=== PATIENT | female | born 1950 | race Caucasian/White ===

== ENCOUNTER 2020-09-16 11:18 | Outpatient (REF) | payer MEDICARE, SELFPAY ==
[2020-09-16 11:56] LABS: MANUAL DIFF FLAG NO
[2020-09-16 12:07] LABS: Basophils Percent Auto 0.8 % (0-2); Eosinophils Absolute Auto 0.2 X10*3/uL (0.0-0.4); Eosinophils Percent Auto 3.9 % (0-4); Hematocrit 42.1 % (37-47); Imm Gran Abs Auto 0.01 X10*3/uL (0.00-0.03); Imm Gran Pct Auto 0.2 % (0.0-0.4); Lymphocytes Absolute Auto 1.3 X10*3/uL (1.2-4.9); Lymphocytes Percent Auto 24.4 % (20-40); Mean Corpuscular HGB Conc 33.3 g/dl (31.0-35.0); Mean Corpuscular Hemoglobin 31.7 pg (27.0-33.0); Mean Corpuscular Volume 95.2 fL (80-98); Mean Platelet Volume 9.9 fL (9.4-12.3); Monocytes Absolute Auto 0.5 X10*3/uL (0.1-1.2); Monocytes Percent Auto 9.2 % (2-11); Neutrophils Absolute Auto 3.2 X10*3/uL (2.0-8.3); Neutrophils Percent Auto 61.5 % (45-73); Platelet Count 220 X10*3/uL (160-400); Red Blood Count 4.42 X10*6/uL (4.20-5.50); Red Cell Distribution Width 13.1 % (11.0-16.0); White Blood Count 5.1 X10*3/uL (4.8-10.8)
[2020-09-16 12:34] LABS: Alanine Aminotransferase 15 U/L (0-31); Albumin Level 4.2 g/dL (3.5-5.0); Alkaline Phosphatase 82 U/L (39-117); Anion Gap 13 (12-20); Aspartate Amino Transferase 20 U/L (5-31); Bilirubin Total 0.9 mg/dL (0.0-1.0); Blood Urea Nitrogen 21 mg/dL (9-16); Calcium 9.2 mg/dL (8.4-10.2); Carbon Dioxide 29 mmol/L (22-29); Chloride 106 mmol/L (96-108); Cholesterol 155 mg/dL; Estimated Glomerular Filt Rate > 60; Glucose Fasting 101 mg/dL (60-99); HDL Cholesterol 57 mg/dL; LDL Cholesterol Calculated 87 mg/dl; Potassium 4.8 mmol/l (3.3-5.1); Sodium 143 mmol/L (135-145); Total Protein 6.6 g/dL (6.5-8.0); Triglycerides 58 mg/dL
== END 2020-09-16 11:19 | disposition home or self-care (01) ==
LOC: HO.LAB 11:18
PROVIDERS: PCP Physician Assistant; Visit Provider Physician Assistant
DX: I48.0 Paroxysmal atrial fibrillation (principal); I10 Essential (primary) hypertension
CPT/HCPCS: 36415; 80053; 80061; 85025

== ENCOUNTER 2022-08-02 13:09 | Outpatient (REF) | payer MEDICARE, SELFPAY ==
--- NOTE | ~2022-08-02 | XR_ITS ---
EXAMINATION: XR HIP, RIGHT CLINICAL INFORMATION: Pain in the right hip. COMPARISON: None TECHNIQUE: Two views of the right hip. FINDINGS: There are marginal osteophytes and nonuniform joint space narrowing most prominent medially. Findings indicative of moderate osteoarthritis. Surrounding bone and soft tissues are unremarkable. XR/XR hip RT min 2V IMPRESSION: Moderate osteoarthritis of the right hip.
== END 2022-08-02 13:10 | disposition home or self-care (01) ==
LOC: HO.HMGCX 13:09
PROVIDERS: PCP Physician Assistant; Visit Provider Physician Assistant
DX: M25.551 Pain in right hip (principal)
CPT/HCPCS: 73502

== ENCOUNTER 2023-04-26 10:49 | Outpatient (REF) | payer MEDICARE, SELFPAY ==
--- NOTE | ~2023-04-26 | XR_ITS ---
EXAMINATION: XR ABDOMEN COMPLETE CLINICAL INDICATION: Constipation COMPARISON: None available. TECHNIQUE: 2 views of the abdomen. FINDINGS: There is a large stool burden suggestive of constipation. There are no dilated loops of bowel to suggest obstruction. No calcifications. Degenerative changes of the spine and hip joints. Curvature of the lower lumbar spine to the left. XR/XR abdomen min 2V IMPRESSION: Severe constipation. No evidence of obstruction.
== END 2023-04-26 10:50 | disposition home or self-care (01) ==
LOC: HO.LAB 10:49
PROVIDERS: PCP Physician Assistant; Visit Provider Physician Assistant
DX: K59.01 Slow transit constipation (principal)
CPT/HCPCS: 74019

== ENCOUNTER 2023-11-22 15:41 | Outpatient (AMB) | payer MEDICARE, SELFPAY ==
[2023-11-22 15:44] VITALS: BP 122/80; PULSE 64; BMI 34.7
--- NOTE | 2023-11-22 15:44 | MHC.PC.OV ---
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 Accompanied by: Self / Same As Patient Allergies nortriptyline [Pamelor] Allergy (Unknown, Verified 11/22/23 16:04) Unknown penicillin V Allergy (Unknown, Verified 11/22/23 16:04) Unknown penicillin Allergy (Unknown, Uncoded 11/22/23 15:56) Unknown Medication List - Last Reconciled 11/22/23 by Kaiden Galdamez PA-C acetaminophen ER (Tylenol Arthritis Pain) 650 mg PO Q12H 30 days amlodipine 5 mg PO DAILY 90 days apixaban (Eliquis) 5 mg PO BID 90 days atorvastatin 20 mg PO DAILY irbesartan 300 mg PO DAILY multivitamin 1 tab PO DAILY sertraline 200 mg (2 x 100 mg) PO DAILY 90 days trazodone 200 mg (2 x 100 mg) PO BEDTIME Tobacco use date assessed: 11/22/23 Fall risk assessment: No Falls in past year Last assessed Fall Risk: 11/22/23 Dental Screening Dental Screen Date: 11/22/23 Did you have a dental visit in the last 12 months?: Yes Did you have a dental problem in the last 6 months where you did not have access to dental care?: No Was dental information given to patient?: Patient has dentist HPI Sinus Issue's HPI Details Patient is a 73-year-old female here today for medication follow up. Patient has a past medical history significant for hypertension, paroxysmal AFib, obesity, hyperlipidemia, MDD She was to move to [place] to live with her daughter though plans have changed and now staying with the practice here in [place]. Concerns--> she reports in August of 2023 having a herpes zoster infection over the right-sided face. 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 She has made full recover and doing fine now. .. AFib: Patient continues on Eliquis 5 mg b.i.d. without any overt signs of bleeding .. Major depressive disorder: Continues remain stable on current dose of SSRI therapy and nightly use of trazodone. [facility] Surgical History History of tonsillectomy History of ankle surgery History of tubal ligation Family History Father Hypertension CVD (cardiovascular disease) Dementia Cancer Mother Hypertension CVD (cardiovascular disease) Myocardial infarction Son Brain tumor Other Mental health disorder Social History Housing: House Alcohol intake: never Patient Tobacco Use Status: Never used Tobacco e-Cigarette/Vaping Use: Never Used Second Hand Smoke Exposure: No service: No Current occupational status: retired Cognitive needs: No Hearing needs: No Vision needs: Yes (reading glasses) Questionnaire PHQ-9 Over the last 2 weeks, how often have you been bothered by any of the following problems? 1. Little interest or pleasure in doing things: not at all 2. Feeling down, depressed, or hopeless: not at all 3. Trouble falling or staying asleep, or sleeping too much: not at all 4. Feeling tired or having little energy: not at all 5. Poor appetite or overeating: not at all 6. Feeling bad about yourself - or that you are a failure or have let yourself or your family down: not at all 7. Trouble concentrating on things, such as reading the newspaper or watching television: not at all 8. Moving or speaking so slowly that other people could have noticed. Or the opposite - being so fidgety or restless that you have been moving around a lot more than usual: not at all 9. Thoughts that you would be better off or of hurting yourself in some way: not at all Total score: 0 Depression Screening Interpretation: Negative Depression Screening Done: Yes 17617 - PHQ-9 Billing: Yes Source: Developed by Drs. Darci Waldrop, Rohini Abad, Betito Ness and colleagues, with an educational say from [employer]. Thrive Questionnaire Date Thrive assessed: 11/22/23 I am a: Patient What is your living situation today?: I have a steady place to live Within the past 12 months, did the food you bought not last and you didn't have the money to get more?: Never true Within the past 12 months, did you worry whether your food would run out before you got money to buy more?: Never true Do you have trouble paying for medicines?: No Do you have trouble getting transportation to medical appointments?: No Do you have trouble paying your heating and electricity bill?: No Do you have trouble taking care of your child, family member or friend?: No Do you have trouble with day-to-day activities such as bathing, preparing meals, shopping, managing finances, etc.?: No Are you currently unemployed and looking for a job?: No Are you interested in more education?: No Please select the resources that you would like help with: None Currently or been in a relationship where the following occur: no concerns reported AUDIT C Alcohol Use Questionnaire (AUDIT-C) 1. How often do you have a drink containing alcohol?: Never 3. How often do you have six or more drinks on one occasion?: Never Total Score: 0 EDWARD-7 AMB Questionnaire EDWARD-7 Date EDWARD - 7 assessed: 11/22/23 Feeling nervous, anxious, or on edge: 0 = Not at all Not being able to stop or control worryin = Not at all Worrying too much about different things: 0 = Not at all Trouble relaxin = Not at all Being so restless that it is hard to sit still: 0 = Not at all Becoming easily annoyed or irritable: 0 = Not at all Feeling afraid as if something awful might happen: 0 = Not at all Total EDWARD-7 score (0-4 normal; 5-9 mild; 10-14 moderate; 15-21 severe): 0 Source: Developed by Drs. Darci Waldrop, Rohini Abad, Betito Ness and colleagues, with an educational say from [employer]. EDWARD-7 Assessment Billing EDWARD-7 Assessment Tool: EDWARD-7 Assessment 29590 Review of Systems Const Denies headache(s) Eyes Denies loss of vision ENT Denies vertigo, Denies dizziness, Denies headache(s) and Denies sore throat Card Denies chest pain, Denies leg edema and Denies lightheadedness Resp Denies cough, Denies hemoptysis and Denies wheezing GI Denies abdominal pain, Denies melena, Denies constipation, Denies diarrhea and Denies vomiting Denies urinary frequency, Denies dysuria and Denies urinary urgency Musc Denies arthralgias, Denies joint swelling, Denies numbness and Denies tingling Neuro Denies Abnormal speech present, Denies behavioral changes, Denies vertigo, Denies dizziness, Denies headache(s), Denies loss of vision, Denies memory loss, Denies numbness and Denies tingling Psych Denies anxiety, Denies behavioral changes, Denies depression, Denies memory loss and Denies panic attacks Long/Lymph Denies easy bleeding and Denies easy bruising Aller/Immun Denies wheezing Physical exam (Primary Care) Vital Signs: Last Vital Signs Pulse 64 11/22/23 15:44 BP 122/80 11/22/23 15:44 BMI result Body Mass Index 34.7 BMI Assessment/Plan discussion: High Tobacco/Smoking Status: Tobacco use Status Tobacco use date assessed 11/22/23 11/22/23 15:55 Patient Tobacco Use Status Never used Tobacco 11/22/23 15:45 e-Cigarette/Vaping Use Never Used 11/22/23 15:45 PHQ-9: PHQ-9 Score PHQ-9: Total score 0 11/22/23 16:10 Depression Screening Interpretation: Negative Thrive Assessment: Date of Thrive Assessment Date Thrive assessed 11/22/23 11/22/23 15:57 Currently or been in a relationship where the following occur: no concerns reported Const Other: Obese General: healthy appearing, no acute distress, alert and awake Nutritional Appearance: well nourished Orientation/consciousness: oriented to person, oriented to place and oriented to time HENMT Ears: TM's normal bilaterally General nose exam: Normal nasal mucous membranes and turbinates present Eyes Conjunctivae: conjunctivae normal Sclerae: sclerae normal Pupils: Equal, round and reactive pupils present Neck Neck: Yes no lymphadenopathy and Yes no JVD Thyroid: Thyroid normal Carotids: no bruits Resp Effort & Inspection: normal respiratory effort and not tachypneic Auscultation: no crackles, no rales, no rhonchi and no wheezes Cardio Rate: regular rate Rhythm: regular rhythm Heart sounds: no murmurs and normal S1 and S2 GI Palpation (GI): Soft to palpation, nontender, no hepatomegaly and no splenomegaly Auscultation: normal bowel sounds Skin General skin exam: no rashes or lesions noted and dry skin Neuro General: oriented to person, oriented to place and oriented to time Cranial nerves: Yes Equal, round and reactive pupils present Speech: No Abnormal speech present Gait exam (Neuro): Normal gait present Motor exam (neuro): no tremor noted Extrem Right upper extremity: full ROM Left upper extremity: full ROM Right lower extremity: full ROM; no edema Left lower extremity: full ROM; no edema Psych Mental Status: mental status grossly normal Speech and movement: Normal speech and movement present Affect: normal affect Attitude: cooperative Thought process: Normal thought process present Assessment and Plan Assessment & Plan (1) HTN (hypertension): Code(s): I10 - Essential (primary) hypertension Qualifiers: Hypertension type: essential hypertension Qualified Code(s): I10 - Essential (primary) hypertension Plan: Patient's blood pressure acceptable today in office. Will continue current antihypertensive medication with goal blood pressure to be below 140/90 (2) Paroxysmal A-fib: Code(s): I48.0 - Paroxysmal atrial fibrillation Plan: Followed by cardiology in [place] ([place]) reports recently gotten labs in evaluation and reports normal. Continues on anticoagulation. She denies any overt signs of bleeding (3) HLD (hyperlipidemia): Code(s): E78.5 - Hyperlipidemia, unspecified Qualifiers: Hyperlipidemia type: mixed hyperlipidemia Qualified Code(s): E78.2 - Mixed hyperlipidemia Plan: Patient continues on statin therapy without side effect. Advised to get fasting lipids done to evaluate for total cholesterol and LDL. Goal LDL to be below 130 (4) MDD (major depressive disorder), recurrent episode, moderate: Code(s): F33.1 - Major depressive disorder, recurrent, moderate Plan: Patient's PHQ-9 score 0, continues on SSRI therapy and nightly trazodone which has been very effective for her. Otherwise denies any SI or HI. (5) Obese: Code(s): E66.9 - Obesity, unspecified Qualifiers: Obesity type: due to excess calories Obesity classification: adult class 1 (BMI 30 - 34.9) Serious obesity comorbidity presence: without serious comorbidity Body mass index: BMI 34.0-34.9 Qualified Code(s): E66.09 - Other obesity due to excess calories; Z68.34 - Body mass index [BMI] 34.0-34.9, adult Plan: Patient does understand her BMI is over 30 will work on being more physically active and adapting to better eating habits to reduce her weight. Orders: Orders Lipid Panel 11/22/23 E78.2 - Mixed hyperlipidemia Microalbumin, Random (w Creat) 11/22/23 I10 - Essential (primary) hypertension Comprehensive [place]. Panel Fast 11/22/23 I10 - Essential (primary) hypertension Complete Blood Count no Diff 11/22/23 I10 - Essential (primary) hypertension Medications: Refilled atorvastatin 20 mg PO DAILY 90 tabs 2RF E78.5 - Hyperlipidemia, unspecified atorvastatin 20 mg PO DAILY 90 tabs 2RF E78.5 - Hyperlipidemia, unspecified Coding Level of Care Code Est Pt Level 4 (33594) Diagnoses Essential hypertension I10 Hypertension type: essential hypertension Paroxysmal A-fib I48.0 Mixed hyperlipidemia E78.2 Hyperlipidemia type: mixed hyperlipidemia MDD (major depressive disorder), recurrent episode, moderate F33.1 Class 1 obesity due to excess calories without serious comorbidity with body mass index (BMI) of 34.0 to 34.9 in adult E66.09; Z68.34 Obesity type: due to excess calories Obesity classification: adult class 1 (BMI 30 - 34.9) Serious obesity comorbidity presence: without serious comorbidity Body mass index: BMI 34.0-34.9 Additional Codes EDWARD-7 Assessment Billing - EDWARD-7 Assessment Tool: EDWARD-7 Assessment 50745 ([id number])
== END 2023-11-22 16:19 | disposition home or self-care (01) ==
PROVIDERS: PCP Physician Assistant; Visit Provider Physician Assistant
DX: I48.0 Paroxysmal atrial fibrillation (principal); F33.1 Major depressive disorder, recurrent, moderate; E66.09 Other obesity due to excess calories; Z68.34 Body mass index [BMI] 34.0-34.9, adult; I10 Essential (primary) hypertension; E78.2 Mixed hyperlipidemia
CPT/HCPCS: 99214

== ENCOUNTER 2024-03-26 14:18 | Outpatient (AMB) | payer MEDICARE, SELFPAY ==
--- NOTE | 2024-03-26 14:22 | A.OFFPC_ITS ---
Vital Signs 03/26/24 14:39 Height 5 ft 2.4 in Weight 194 lb BMI 35.0 BP 138/76 Blood Pressure Location Lt brachial Position Sitting Pulse 64 Pulse Source Pulse Oximeter Pulse Oximetry (%) 96 Oxygen Delivery Method Room Air Intake Visit Reasons: runny nose, blury eyes, rt knee swell and sore Intake Note: Pt is here for blurred vision, which worsens especially at night, ongoing swelling and soreness in the right knee, and a chronic runny nose. [employer] Supervisor Required: No Accompanied by: Self / Same As Patient Allergies nortriptyline [Pamelor] Allergy (Unknown, Verified 03/26/24 14:57) Unknown penicillin V Allergy (Unknown, Verified 03/26/24 14:57) Unknown penicillin Allergy (Unknown, Uncoded 03/26/24 14:57) Unknown Medication List - Last Reconciled 03/26/24 by Kaiden Galdamez PA-C acetaminophen ER (Tylenol Arthritis Pain) 650 mg PO Q12H 30 days amlodipine 5 mg PO DAILY 90 days apixaban (Eliquis) 5 mg PO BID 90 days atorvastatin 20 mg PO DAILY doxycycline monohydrate 100 mg PO BID 5 days irbesartan 300 mg PO DAILY multivitamin 1 tab PO DAILY sertraline 200 mg (2 x 100 mg) PO DAILY 90 days trazodone 200 mg (2 x 100 mg) PO BEDTIME Tobacco use date assessed: 11/22/23 Fall risk assessment: No Falls in past year Last assessed Fall Risk: 03/26/24 Dental Screening Dental Screen Date: 11/22/23 HPI runny nose, blury eyes, rt knee swell and sore HPI Details Patient is a 73-year-old female here today for problem visit. Patient reports having runny nose and watery eyes over last several weeks. Also having bilateral knee pain , right worse than left. She denies any recent acute injury. She also reports having chronic rhinitis to which she has not used any [id number] nasal sprays or allergy medication. [facility] [place] Surgical History History of tonsillectomy History of ankle surgery History of tubal ligation Family History Father Hypertension CVD (cardiovascular disease) Dementia Cancer Mother Hypertension CVD (cardiovascular disease) Myocardial infarction Son Brain tumor Other Mental health disorder Social History Housing: House Alcohol intake: never Patient Tobacco Use Status: Never used Tobacco e-Cigarette/Vaping Use: Never Used Second Hand Smoke Exposure: No service: No Current occupational status: retired Cognitive needs: No Hearing needs: No Vision needs: Yes (reading glasses) Questionnaire Thrive Questionnaire Date Thrive assessed: 11/22/23 EDWARD-7 AMB Questionnaire EDWARD-7 Date EDWARD - 7 assessed: 11/22/23 Source: Developed by Drs. Darci Waldrop, Rohini Abad, Betito Ness and colleagues, with an educational say from [employer]. Review of Systems Const Denies headache(s) Eyes Denies loss of vision ENT Denies vertigo, Denies dizziness, Denies headache(s) and Denies sore throat Card Denies chest pain, Denies leg edema and Denies lightheadedness Resp Denies cough, Denies hemoptysis and Denies wheezing GI Denies abdominal pain, Denies melena, Denies constipation, Denies diarrhea and Denies vomiting Denies urinary frequency, Denies dysuria and Denies urinary urgency Musc Denies arthralgias, Denies joint swelling, Denies numbness and Denies tingling Neuro Denies Abnormal speech present, Denies behavioral changes, Denies vertigo, Denies dizziness, Denies headache(s), Denies loss of vision, Denies memory loss, Denies numbness and Denies tingling Psych Denies anxiety, Denies behavioral changes, Denies depression, Denies memory loss and Denies panic attacks Long/Lymph Denies easy bleeding and Denies easy bruising Aller/Immun Denies wheezing Physical exam (Primary Care) Vital Signs: Last Vital Signs Pulse 64 03/26/24 14:39 BP 138/76 03/26/24 14:39 Pulse Ox 96 03/26/24 14:39 Oxygen Delivery Method Room Air 03/26/24 14:39 BMI result Body Mass Index 35.0 Tobacco/Smoking Status: Tobacco use Status Tobacco use date assessed 11/22/23 03/26/24 14:22 Patient Tobacco Use Status Never used Tobacco 03/26/24 14:22 e-Cigarette/Vaping Use Never Used 03/26/24 14:22 Thrive Assessment: Date of Thrive Assessment Date Thrive assessed 11/22/23 03/26/24 14:22 Const General: healthy appearing, no acute distress, alert and awake Nutritional Appearance: well nourished Orientation/consciousness: oriented to person, oriented to place and oriented to time HENMT Ears: TM's normal bilaterally General nose exam: Normal nasal mucous membranes and turbinates present Eyes Conjunctivae: conjunctivae normal Sclerae: sclerae normal Pupils: Equal, round and reactive pupils present Neck Neck: Yes no lymphadenopathy and Yes no JVD Thyroid: Thyroid normal Carotids: no bruits Resp Effort & Inspection: normal respiratory effort and not tachypneic Auscultation: no crackles, no rales, no rhonchi and no wheezes Cardio Rate: regular rate Rhythm: regular rhythm Heart sounds: no murmurs and normal S1 and S2 GI Palpation (GI): Soft to palpation, nontender, no hepatomegaly and no splenomegaly Auscultation: normal bowel sounds Skin General skin exam: no rashes or lesions noted and dry skin Neuro General: oriented to person, oriented to place and oriented to time Cranial nerves: Yes Equal, round and reactive pupils present Speech: No Abnormal speech present Gait exam (Neuro): Normal gait present Motor exam (neuro): no tremor noted Extrem Right upper extremity: full ROM Left upper extremity: full ROM Right lower extremity: full ROM; no edema Left lower extremity: full ROM; no edema Psych Mental Status: mental status grossly normal Speech and movement: Normal speech and movement present Affect: normal affect Attitude: cooperative Thought process: Normal thought process present Assessment and Plan Assessment & Plan (1) Left knee pain: Code(s): M25.562 - Pain in left knee Qualifiers: Chronicity: chronic Qualified Code(s): M25.562 - Pain in left knee; G89.29 - Other chronic pain Plan: Will try for x-rays of both knees as she does have pain in both knees. Left knee worse. She does have hardware placement in her right ankle years ago from traumatic injury. She does seem to have an antalgic gait which is likely the reason for left knee pain from compensation. (2) Right knee pain: Code(s): M25.561 - Pain in right knee Qualifiers: Chronicity: unspecified Qualified Code(s): M25.561 - Pain in right knee (3) Rhinitis: Code(s): J31.0 - Chronic rhinitis Qualifiers: Rhinitis type: other Qualified Code(s): J31.0 - Chronic rhinitis Plan: Patient continues with rhinitis, likely related to allergies. Will supply patient with a nasal spray to use Orders: Orders XR knee RT 3V 03/27/24 G89.29 - Other chronic pain, M25.562 - Pain in left knee XR knee LT 3V 03/27/24 G89.29 - Other chronic pain, M25.562 - Pain in left knee Medications: New fluticasone propionate 50 mcg/actuation (Flonase Allergy Relief) administer into each nostril 1 spray intranasal BID 16 grams 2RF 30 days J31.0 - Chronic rhinitis Discontinued doxycycline monohydrate Discontinued Reason: Doctor's Order 100 mg PO BID 5 days 10 caps 0RF L03.90 - Cellulitis, unspecified Coding Level of Care Code Est Pt Level 4 (20108) Diagnoses Chronic pain of left knee M25.562; G89.29 Chronicity: chronic Right knee pain, unspecified chronicity M25.561 Chronicity: unspecified Other rhinitis J31.0 Rhinitis type: other
[2024-03-26 14:39] VITALS: BP 138/76; PULSE 64; O2SAT 96; BMI 35.0
== END 2024-03-26 15:24 | disposition home or self-care (01) ==
PROVIDERS: PCP Physician Assistant; Visit Provider Physician Assistant
DX: M25.562 Pain in left knee (principal); M25.561 Pain in right knee; G89.29 Other chronic pain; J31.0 Chronic rhinitis
CPT/HCPCS: 99214

== ENCOUNTER 2024-03-27 11:11 | Outpatient (REF) | payer MEDICARE, SELFPAY ==
--- NOTE | ~2024-03-27 | XR_ITS ---
EXAMINATION: XR BILATERAL KNEES CLINICAL INFORMATION: Pain in each knee. COMPARISON: None available. FINDINGS: RIGHT KNEE: Bones are diffusely demineralized. Faint chondrocalcinosis in the medial and lateral compartments. [id number]-[id number] narrowing of the medial compartment. Tiny tricompartmental osteophytes. Small suprapatellar effusion. Mild lateral subluxation of the patella. LEFT KNEE: Bones are diffusely demineralized. Faint chondrocalcinosis in the medial and lateral compartments. [id number]-[id number] narrowing of the medial compartment. Tiny tricompartmental osteophytes. Small suprapatellar effusion. Mild lateral subluxation of the patella. XR/XR knee LT 3V IMPRESSION: [id number] degenerative changes in the bilateral knees.
--- NOTE | ~2024-03-27 | XR_ITS ---
EXAMINATION: XR BILATERAL KNEES CLINICAL INFORMATION: Pain in each knee. COMPARISON: None available. FINDINGS: RIGHT KNEE: Bones are diffusely demineralized. Faint chondrocalcinosis in the medial and lateral compartments. Gyyc-[id number] narrowing of the medial compartment. Tiny tricompartmental osteophytes. Small suprapatellar effusion. Mild lateral subluxation of the patella. LEFT KNEE: Bones are diffusely demineralized. Faint chondrocalcinosis in the medial and lateral compartments. Sbum-ie-yqgmfwyr narrowing of the medial compartment. Tiny tricompartmental osteophytes. Small suprapatellar effusion. Mild lateral subluxation of the patella. XR/XR knee RT 3V IMPRESSION: [id number] degenerative changes in the bilateral knees.
== END 2024-03-27 11:12 | disposition home or self-care (01) ==
LOC: HO.XRAY 11:11
PROVIDERS: PCP Physician Assistant; Visit Provider Physician Assistant
DX: M25.562 Pain in left knee (principal); G89.29 Other chronic pain; M25.561 Pain in right knee
CPT/HCPCS: 73562

== ENCOUNTER 2024-06-18 10:19 | Outpatient (REF) | payer MEDICARE, SELFPAY ==
[2024-06-18 10:53] LABS: Hemoglobin 13.5 g/dl (12.0-16.0); Mean Corpuscular HGB Conc 32.9 g/dl (31.0-35.0); Mean Corpuscular Hemoglobin 31.8 pg (27.0-33.0); Mean Corpuscular Volume 96.7 fL (80.0-98.0); Mean Platelet Volume 9.8 fL (9.4-12.3); Platelet Count 223 X10*3/uL (160-400); Red Blood Count 4.24 X10*6/uL (4.20-5.50); Red Cell Distribution Width 12.9 % (11.0-16.0); White Blood Count 5.8 X10*3/uL (4.8-10.8)
[2024-06-18 11:40] LABS: Alanine Aminotransferase 11 U/L (0-31); Albumin Level 4.1 g/dL (3.5-5.0); Alkaline Phosphatase 99 U/L (39-117); Anion Gap 10 (12-20); Aspartate Amino Transferase 17 U/L (5-31); Bilirubin Total 0.6 mg/dL (0.0-1.0); Blood Urea Nitrogen 18 mg/dL (9-16); Calcium 9.9 mg/dL (8.4-10.2); Carbon Dioxide 29 mmol/L (22-29); Chloride 107 mmol/L (96-108); Cholesterol 221 mg/dL (<200); Estimated Glomerular Filt Rate 59; Glucose Fasting 100 mg/dL (60-99); HDL Cholesterol 53 mg/dL (>40); LDL Cholesterol Calculated 146 mg/dL (<100); Potassium 4.3 mmol/L (3.3-5.1); Sodium 142 mmol/L (135-145); Total Protein 6.9 g/dL (6.5-8.0); Triglycerides 113 mg/dL (<150)
[2024-06-18 14:17] LABS: Creatinine Urine 126.47 mg/dL; Microalbum/Creatinine Ratio Ur 52.1 ug/mg cr (<30)
== END 2024-06-18 10:20 | disposition home or self-care (01) ==
LOC: HO.LAB 10:19
PROVIDERS: PCP Physician Assistant; Visit Provider Physician Assistant
DX: I10 Essential (primary) hypertension (principal); E78.2 Mixed hyperlipidemia
CPT/HCPCS: 36415; 80053; 80061; 82043; 82570; 85027

== ENCOUNTER 2024-08-26 13:48 | Outpatient (AMB) | payer MEDICARE, SELFPAY ==
--- NOTE | 2024-08-26 14:09 | A.OFFPC_ITS ---
Vital Signs 08/26/24 14:10 Height 5 ft 2.4 in Blood Pressure Location Lt brachial Position Sitting Pulse Source Pulse Oximeter Oxygen Delivery Method Room Air Intake Visit Reasons: afib hld Allergies nortriptyline [Pamelor] Allergy (Unknown, Verified 03/26/24 14:57) Unknown penicillin V Allergy (Unknown, Verified 03/26/24 14:57) Unknown penicillin Allergy (Unknown, Uncoded 03/26/24 14:57) Unknown Tobacco use date assessed: 11/22/23 Dental Screening Dental Screen Date: 11/22/23 [facility] Surgical History History of tonsillectomy History of ankle surgery History of tubal ligation Family History Father Hypertension CVD (cardiovascular disease) Dementia Cancer Mother Hypertension CVD (cardiovascular disease) Myocardial infarction Son Brain tumor Other Mental health disorder Social History Housing: House Alcohol intake: never Patient Tobacco Use Status: Never used Tobacco e-Cigarette/Vaping Use: Never Used Second Hand Smoke Exposure: No service: No Current occupational status: retired Cognitive needs: No Hearing needs: No Vision needs: Yes (reading glasses) Questionnaire PHQ-9 Over the last 2 weeks, how often have you been bothered by any of the following problems? 1. Little interest or pleasure in doing things: not at all 2. Feeling down, depressed, or hopeless: not at all 3. Trouble falling or staying asleep, or sleeping too much: not at all 4. Feeling tired or having little energy: not at all 5. Poor appetite or overeating: not at all 6. Feeling bad about yourself - or that you are a failure or have let yourself or your family down: not at all 7. Trouble concentrating on things, such as reading the newspaper or watching television: not at all 8. Moving or speaking so slowly that other people could have noticed. Or the opposite - being so fidgety or restless that you have been moving around a lot more than usual: not at all 9. Thoughts that you would be better off or of hurting yourself in some way: not at all Total score: 0 Depression Screening Interpretation: Negative Depression Screening Done: Yes 89671 - PHQ-9 Billing: Yes Source: Developed by Drs. Darci Waldrop, Rohini Abad, Betito Ness and colleagues, with an educational say from [employer]. Thrive Questionnaire Date Thrive assessed: 08/26/24 I am a: Patient What is your living situation today?: I have a steady place to live Within the past 12 months, did the food you bought not last and you didn't have the money to get more?: Never true Within the past 12 months, did you worry whether your food would run out before you got money to buy more?: Never true Do you have trouble paying for medicines?: No Do you have trouble getting transportation to medical appointments?: No Do you have trouble paying your heating and electricity bill?: No Do you have trouble taking care of your child, family member or friend?: No Do you have trouble with day-to-day activities such as bathing, preparing meals, shopping, managing finances, etc.?: No Are you currently unemployed and looking for a job?: I choose not to answer this question Are you interested in more education?: No Please select the resources that you would like help with: None Currently or been in a relationship where the following occur: No concerns reported THRIVE Score: 0 AUDIT C Alcohol Use Questionnaire (AUDIT-C) 1. How often do you have a drink containing alcohol?: Never 3. How often do you have six or more drinks on one occasion?: Never Total Score: 0 EDWARD-7 AMB Questionnaire EDWARD-7 Date EDWARD - 7 assessed: 08/26/24 Feeling nervous, anxious, or on edge: 0 = Not at all Not being able to stop or control worryin = Not at all Worrying too much about different things: 0 = Not at all Trouble relaxin = Not at all Being so restless that it is hard to sit still: 0 = Not at all Becoming easily annoyed or irritable: 0 = Not at all Feeling afraid as if something awful might happen: 0 = Not at all Total EDWARD-7 score (0-4 normal; 5-9 mild; 10-14 moderate; 15-21 severe): 0 Source: Developed by Rohini Trinidad Kurt Kroenke and colleagues, with an educational say from [employer]. EDWARD-7 Assessment Billing EDWARD-7 Assessment Tool: EDWARD-7 Assessment 68073 Physical exam (Primary Care) Tobacco/Smoking Status: Tobacco use Status Tobacco use date assessed 11/22/23 03/26/24 14:22 Patient Tobacco Use Status Never used Tobacco 03/26/24 14:22 e-Cigarette/Vaping Use Never Used 03/26/24 14:22 Depression Screening Interpretation: Negative Thrive Assessment: Date of Thrive Assessment Date Thrive assessed 11/22/23 03/26/24 14:22 Currently or been in a relationship where the following occur: No concerns reported Coding Additional Codes EDWARD-7 Assessment Billing - EDWARD-7 Assessment Tool: EDWARD-7 Assessment 03051 ([id number])
[2024-08-26 14:10] VITALS: BP 160/100; PULSE 60; O2SAT 97; BMI 34.7
--- NOTE | 2024-08-26 14:20 | A.OFFVIS_ITS ---
Intake Vital Signs 08/26/24 14:10 08/26/24 14:54 Height 5 ft 2.4 in Weight 192 lb 4 oz BMI 34.7 BP 160/100 H 160/100 H Blood Pressure Location Lt brachial Position Sitting Pulse 60 Pulse Source Pulse Oximeter Pulse Oximetry (%) 97 Oxygen Delivery Method Room Air Intake Visit Reasons: Wellness visit Network Consultant Required: No Accompanied by: Self / Same As Patient Allergies nortriptyline [Pamelor] Allergy (Unknown, Verified 08/26/24 14:36) Unknown penicillin V Allergy (Unknown, Verified 08/26/24 14:36) Unknown penicillin Allergy (Unknown, Uncoded 08/26/24 14:36) Unknown Medication List - Last Reconciled 08/26/24 by Kaiden Galdamez PA-C acetaminophen ER (Tylenol Arthritis Pain) 650 mg PO Q12H 30 days amlodipine 5 mg PO DAILY 90 days apixaban (Eliquis) 5 mg PO BID 90 days atorvastatin 20 mg PO DAILY fluticasone propionate 50 mcg/actuation (Flonase Allergy Relief) 1 spray intranasal BID 30 days irbesartan 300 mg PO DAILY multivitamin 1 tab PO DAILY sertraline 200 mg (2 x 100 mg) PO DAILY 90 days trazodone 200 mg (2 x 100 mg) PO BEDTIME HPI Wellness visit HPI Details Patient is a 74-year-old female here today for an annual wellness visit. --> of note noted higher blood pressure reading today in office. Patient reports she has been under some stress as of late due to social and family issues going on. She is diligent about taking her blood pressure readings and taking her medication. Today we discussed patient's end of life planning and [facility]. Also reviewed her comprehensive care plan that was scanned into patient's documents. Mammogram: Gets mammograms done at [facility] Bone density: Sees specialty transformer assembler and gets bone densities done at [facility] Colorectal cancer screening: She reports she is up-to-date with colonoscopy Vaccines: Up-to-date with tetanus, pneumonia, COVID, considering shingles vaccine HPI Comments History of Present Illness Details reviewed past medical history- yes reviewed surgical / hospitalization history- yes reviewed current medications- yes reviewed family history- yes home safety throw rugs? grab bars? raised toilet seat? working smoke detectors? activities of daily living difficulty bathing or showering? difficulty dressing? difficulty using the toilet? difficulty getting in and out of bed? difficulty walking? receives help from other person's with any of the above tasks? instrumental activities of daily living uses telephone - gets to place out of walking distance- go shopping for groceries- repairs own meals- does own minor home maintenance- does own laundry- does own housework- manages own money- currently takes medication- end of life planning discussed advanced directives- yes advanced directives on file? discussed wishes expressed in advanced directives. fall risk have you had any falls with injuries in the past year? have you had 2 or more falls in the past year? fall risk assessment: [facility] Surgical History History of tonsillectomy History of ankle surgery History of tubal ligation Family History Father Hypertension CVD (cardiovascular disease) Dementia Cancer Mother Hypertension CVD (cardiovascular disease) Myocardial infarction Son Brain tumor Other Mental health disorder Social History Housing: House Alcohol intake: never Patient Tobacco Use Status: Never used Tobacco e-Cigarette/Vaping Use: Never Used Second Hand Smoke Exposure: No service: No Current occupational status: retired Cognitive needs: No Hearing needs: No Vision needs: Yes (reading glasses) Questionnaire Medicare Wellness Checkup [age] What gender do you identify with?: female During the past 4 weeks, how much have you been bothered by emotional problems such as feeling anxious, depressed, irritable, sad or downhearted, and blue?: slightly During the past 4 weeks, has your physical & emotional health limited your social activities with family, friends, neighbors, or groups?: slightly During the past 4 weeks, how much bodily pain have you generally had?: mild pain During the past 4 weeks, was someone available to help you if you needed & wanted help?: yes, quite a bit During the past 4 weeks, what was the hardest physical activity you could do for at least 2 minutes?: very heavy Can you get to places out of walking distance without help? (For eg., can you travel alone on buses, taxis or drive your car?): Yes Can you go shopping for groceries or clothes without someone's help?: Yes Can you prepare your own meals?: Yes Can you do your housework without help?: Yes Because of any health problems, do you need the help of another person with your personal care needs such as eating, bathing, dressing or getting around the house?: No Can you handle your own money without help?: Yes During the past 4 weeks, how would you rate your health in general?: very good During the past 4 weeks how have things been going for you?: pretty well Are you having difficulties driving your car?: no Do you always fasten your seat belt when you are in a car?: yes, usually During past 4 weeks, have you been bothered by the following: never: Falling or dizzy when standing up, Sexual problems? and Problems using the telephone?, seldom: Trouble eating well? and Teeth or denture problems? and sometimes: Tiredness or fatigue? Have you fallen 2 or more times in the past year?: No Are you afraid of falling?: No Are you a smoker?: no During the past 4 weeks, how many drinks of wine, beer, or other alcoholic beverages did you have?: no alcohol at all Do you exercise for about 20 minutes 3 or more times a week?: yes, most of the time Have you been given information to help with the following?: no: Hazards in your house that might hurt you? How often do you have trouble taking medicines the way you have been told to take them?: I always take medicine as prescribed How confident are you that you can control & manage most of your health pr oblems?: very confident What is your race?: White Mini Mental State Exam (MMSE) Orientation What is the (year) (season) (date) (day) (month)?: year Where are we (state) (county) (town or city) (hospital) (floor)?: town or city Attention & Calculation (CHOOSE ONE) Ask pt to begin with 100 & count backward by 7. Stop after 5 repeats. If pt cannot ask them to spell the word WORLD backward.: 93 Spell WORLD backwards (DLROW): 5 letters Score Score: 8 Activity of Daily Living Bathing - sponge bath, tub bath or shower: receives no assistance (gets in/out by self, if usual bathing means Dressing - getting clothes from closets & drawers, including inner/outer garments & fasteners.: gets clothes & gets completely dressed without help Toileting - going to the 'toilet room' for urine/bowel elimination & cleaning self/arranging clothes: goes to toilet room, cleans self, arranges clothes without help Transfer: moves in & out of bed and chair without help (may use support object) Continence: controls urination/bowel movements completely by self Feeding: feeds self without help Total Score: 0 Information obtained from: patient Using telephone: independent Traveling: independent Shopping: independent Preparing meals: independent Housework: independent Taking medicine: independent Managing money: independent PHQ-9 Over the last 2 weeks, how often have you been bothered by any of the following problems? 1. Little interest or pleasure in doing things: not at all 2. Feeling down, depressed, or hopeless: not at all 3. Trouble falling or staying asleep, or sleeping too much: not at all 4. Feeling tired or having little energy: several days 5. Poor appetite or overeating: several days 6. Feeling bad about yourself - or that you are a failure or have let yourself or your family down: several days 7. Trouble concentrating on things, such as reading the newspaper or watching television: not at all 8. Moving or speaking so slowly that other people could have noticed. Or the opposite - being so fidgety or restless that you have been moving around a lot more than usual: not at all 9. Thoughts that you would be better off or of hurting yourself in some way: not at all Total score: 3 Depression Screening Interpretation: Positive Depression Screening Follow-up: Existing condition Depression Screening Done: Yes 79675 - PHQ-9 Billing: Yes Source: Developed by Drs. Darci Waldrop, Rohini Abad, Betito Ness and colleagues, with an educational say from [employer]. Physical Exam Vital Signs: Last Vital Signs Pulse 60 08/26/24 14:10 BP 160/100 H 08/26/24 14:54 Pulse Ox 97 08/26/24 14:10 Oxygen Delivery Method Room Air 08/26/24 14:10 BMI result Body Mass Index 34.7 HEENT Other: hearing screening whisper test- failed left side, pass on right side Eyes Other: vision screening- 20 20 OS OD OU Other: urinary incontinence? no Neuro Other: balance Romberg- normal tandem walk test- able walk-in turned test- able rise from sit to stand- within 2 seconds Assessment & Plan Assessment & Plan (1) Annual wellness visit: Code(s): Z00.00 - Encounter for general adult medical examination without abnormal findings Plan: As per HPI Orders: Orders Lipid Panel 08/26/24 E78.2 - Mixed hyperlipidemia Microalbumin, Random (w Creat) 08/26/24 I10 - Essential (primary) hypertension Comprehensive [place]. Panel Fast 08/26/24 I10 - Essential (primary) hypertension Complete Blood Count no Diff 08/26/24 I10 - Essential (primary) hypertension Quality Reporting (2019) Depression/Bipolar (159/160/161/177) PHQ-9: Total score: 3 Coding Level of Care Code Medicare Subsequent (G0439) Diagnoses Annual wellness visit Z00.00 CPT Codes Advance Care Planning - Time spent: 1-15 minutes, not on file ([id number]) Advance Care Planning Advance Care Planning discussion: Exists, not on file Date of discussion: 08/26/24 Forms completed: MOLST Time spent: 1-15 minutes, not on file Actual minutes spent: 4
[2024-08-26 14:54] VITALS: BP 160/100
== END 2024-08-26 15:06 | disposition home or self-care (01) ==
PROVIDERS: PCP Physician Assistant; Visit Provider Physician Assistant
DX: Z00.00 Encounter for general adult medical examination without abnormal findings (principal)

== ENCOUNTER → 2024-08-26 13:48 | Outpatient (BNVA) | payer MEDICARE, SELFPAY | PROVIDERS: PCP Physician Assistant; Visit Provider Physician Assistant ==

== ENCOUNTER 2025-06-22 10:01 | Outpatient (AMB) | payer MEDICARE, SELFPAY ==
--- NOTE | 2025-06-22 10:08 | MHC.PC.OV ---
Vital Signs 06/22/25 10:09 Height 5 ft 2.4 in Weight 190 lb 2 oz BMI 34.3 BP 120/70 Blood Pressure Location Lt brachial Position Sitting Pulse 60 Pulse Source Pulse Oximeter Temp 97.1 F Temp Source Temporal Artery Scan Pulse Oximetry (%) 97 Oxygen Delivery Method Room Air Intake Visit Reasons: Follow up HTN Intake Note: Patient is here to follow up on HTN. 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: Not Required per policy Accompanied by: Self / Same As Patient Allergies nortriptyline (Pamelor) Allergy (Unknown, Verified 06/22/25 10:20) Unknown penicillin V Allergy (Unknown, Verified 06/22/25 10:20) Unknown penicillin Allergy (Unknown, Uncoded 06/22/25 10:20) Unknown Medication List - Last Reconciled 06/22/25 by Kaiden Galdamez PA-C acetaminophen ER (Tylenol Arthritis Pain) 650 mg PO Q12H 30 days amlodipine 5 mg PO DAILY 90 days apixaban (Eliquis) 5 mg PO BID 90 days atorvastatin 20 mg PO DAILY fluticasone propionate 50 mcg/actuation (Flonase Allergy Relief) 1 spray intranasal BID 30 days irbesartan 300 mg PO DAILY 90 days multivitamin 1 tab PO DAILY sertraline 200 mg (2 x 100 mg) PO DAILY 90 days trazodone 200 mg (2 x 100 mg) PO BEDTIME Tobacco use date assessed: 06/22/25 Fall risk assessment: No Falls in past year Last assessed Fall Risk: 06/22/25 Dental Screening Dental Screen Date: 06/22/25 Did you have a dental visit in the last 12 months?: Yes Did you have a dental problem in the last 6 months where you did not have access to dental care?: No Was dental information given to patient?: Patient has dentist HPI Follow up HTN HPI Details Patient is a 74-year-old female here today for medication follow up. Patient has a past medical history significant for hypertension, paroxysmal AFib, obesity, hyperlipidemia, MDD Concerns--> patient reports having chronic sinus congestion some raspy hoarseness of her voice that has been evident for many years. She attributes these symptoms to having her AC on over this hot summer. She does admit to environmental allergy. She does use a Flonase inhaler and [id number] allergy medication .. Hypertension: Patient continues on irbesartan with good effect on her blood pressure. She has stopped taking amlodipine 5 mg and blood pressure today in office acceptable. Will continue to hold amlodipine for now and if blood pressure does elevate in the future will consider restarting amlodipine 5 mg. .. AFib: Patient continues on Eliquis 5 mg b.i.d. without any overt signs of bleeding .. Major depressive disorder: Continues remain stable on current dose of SSRI therapy and nightly use of trazodone. [facility] Surgical History History of tooth extraction History of tonsillectomy History of ankle surgery History of tubal ligation Family History Father Hypertension CVD (cardiovascular disease) Dementia Cancer Mother Hypertension CVD (cardiovascular disease) Myocardial infarction Son Brain tumor Other Mental health disorder Social History Housing: House Alcohol intake: never Patient Tobacco Use Status: Never used Tobacco e-Cigarette/Vaping Use: Never Used Second Hand Smoke Exposure: No service: No Current occupational status: retired Cognitive needs: No Hearing needs: No Vision needs: Yes (reading glasses) Questionnaire PHQ-9 Over the last 2 weeks, how often have you been bothered by any of the following problems? 1. Little interest or pleasure in doing things: not at all 2. Feeling down, depressed, or hopeless: not at all 3. Trouble falling or staying asleep, or sleeping too much: not at all 4. Feeling tired or having little energy: several days 5. Poor appetite or overeating: not at all 6. Feeling bad about yourself - or that you are a failure or have let yourself or your family down: not at all 7. Trouble concentrating on things, such as reading the newspaper or watching television: not at all 8. Moving or speaking so slowly that other people could have noticed. Or the opposite - being so fidgety or restless that you have been moving around a lot more than usual: not at all 9. Thoughts that you would be better off or of hurting yourself in some way: not at all Total score: 1 Depression Screening Interpretation: Negative Depression Screening Done: Yes 02672 - PHQ-9 Billing: Yes Source: Developed by Drs. Darci Waldrop, Rohini Abad, Betito Ness and colleagues, with an educational say from [employer]. Thrive Questionnaire Date Thrive assessed: 06/22/25 I am a: Patient What is your living situation today?: I have a steady place to live Within the past 12 months, did the food you bought not last and you didn't have the money to get more?: Never true Within the past 12 months, did you worry whether your food would run out before you got money to buy more?: Never true Do you have trouble paying for medicines?: No Do you have trouble getting transportation to medical appointments?: No Do you have trouble paying your heating and electricity bill?: No Do you have trouble taking care of your child, family member or friend?: No Do you have trouble with day-to-day activities such as bathing, preparing meals, shopping, managing finances, etc.?: No Are you currently unemployed and looking for a job?: I choose not to answer this question Are you interested in more education?: Yes Please select the resources that you would like help with: None Currently or been in a relationship where the following occur: No concerns reported THRIVE Score: 0 AUDIT C Alcohol Use Questionnaire (AUDIT-C) 1. How often do you have a drink containing alcohol?: Never Total Score: 0 EDWARD-7 AMB Questionnaire EDWARD-7 Date EDWARD - 7 assessed: 06/22/25 Feeling nervous, anxious, or on edge: 0 = Not at all Not being able to stop or control worryin = Not at all Worrying too much about different things: 0 = Not at all Trouble relaxin = Not at all Being so restless that it is hard to sit still: 0 = Not at all Becoming easily annoyed or irritable: 0 = Not at all Feeling afraid as if something awful might happen: 0 = Not at all Total EDWARD-7 score (0-4 normal; 5-9 mild; 10-14 moderate; 15-21 severe): 0 Source: Developed by Rohini Trinidad Kurt Kroenke and colleagues, with an educational say from [employer]. EDWARD-7 Assessment Billing EDWARD-7 Assessment Tool: EDWARD-7 Assessment 73754 Review of Systems Const Denies headache(s) Eyes Denies loss of vision ENT Denies vertigo, Denies dizziness, Denies headache(s) and Denies sore throat Card Denies chest pain, Denies leg edema and Denies lightheadedness Resp Denies cough, Denies hemoptysis and Denies wheezing GI Denies abdominal pain, Denies melena, Denies constipation, Denies diarrhea and Denies vomiting Denies urinary frequency, Denies dysuria and Denies urinary urgency Musc Denies arthralgias, Denies joint swelling, Denies numbness and Denies tingling Neuro Denies Abnormal speech present, Denies behavioral changes, Denies vertigo, Denies dizziness, Denies headache(s), Denies loss of vision, Denies memory loss, Denies numbness and Denies tingling Psych Denies anxiety, Denies behavioral changes, Denies depression, Denies memory loss and Denies panic attacks Long/Lymph Denies easy bleeding and Denies easy bruising Aller/Immun Denies wheezing Physical exam (Primary Care) Vital Signs: Last Vital Signs Temp 97.1 F 06/22/25 10:09 Pulse 60 06/22/25 10:09 BP 120/70 06/22/25 10:09 Pulse Ox 97 06/22/25 10:09 Oxygen Delivery Method Room Air 06/22/25 10:09 BMI result Body Mass Index 34.3 BMI Assessment/Plan discussion: High BMI High, discussed plan: lifestyle, weight reduction, dietary and physical activity Tobacco/Smoking Status: Tobacco use Status Tobacco use date assessed 06/22/25 06/22/25 10:17 Patient Tobacco Use Status Never used Tobacco 06/22/25 10:17 e-Cigarette/Vaping Use Never Used 06/22/25 10:17 PHQ-9: PHQ-9 Score PHQ-9: Total score 1 06/22/25 10:17 Depression Screening Interpretation: Negative Thrive Assessment: Date of Thrive Assessment Date Thrive assessed 06/22/25 06/22/25 10:17 Currently or been in a relationship where the following occur: No concerns reported Const General: healthy appearing, no acute distress, alert and awake Nutritional Appearance: well nourished Orientation/consciousness: oriented to person, oriented to place and oriented to time HENMT Ears: TM's normal bilaterally General nose exam: Normal nasal mucous membranes and turbinates present Eyes Conjunctivae: conjunctivae normal Sclerae: sclerae normal Pupils: Equal, round and reactive pupils present Neck Neck: Yes no lymphadenopathy and Yes no JVD Thyroid: Thyroid normal Carotids: no bruits Resp Effort & Inspection: normal respiratory effort and not tachypneic Auscultation: no crackles, no rales, no rhonchi and no wheezes Cardio Rate: regular rate Rhythm: regular rhythm Heart sounds: no murmurs and normal S1 and S2 GI Palpation (GI): Soft to palpation, nontender, no hepatomegaly and no splenomegaly Auscultation: normal bowel sounds Skin General skin exam: no rashes or lesions noted and dry skin Neuro General: oriented to person, oriented to place and oriented to time Cranial nerves: Yes Equal, round and reactive pupils present Speech: No Abnormal speech present Gait exam (Neuro): Normal gait present Motor exam (neuro): no tremor noted Extrem Right upper extremity: full ROM Left upper extremity: full ROM Right lower extremity: full ROM; no edema Left lower extremity: full ROM; no edema Psych Mental Status: mental status grossly normal Speech and movement: Normal speech and movement present Affect: normal affect Attitude: cooperative Thought process: Normal thought process present Coding Level of Care Code Est Pt Level 4 (10610) Diagnoses Paroxysmal A-fib I48.0 Mixed hyperlipidemia E78.2 Hyperlipidemia type: mixed hyperlipidemia Essential hypertension I10 Hypertension type: essential hypertension MDD (major depressive disorder), recurrent episode, moderate F33.1 Allergy, subsequent encounter T78.40XD Encounter type: subsequent encounter Class 2 obesity E66.812 Additional Codes EDWARD-7 Assessment Billing - EDWARD-7 Assessment Tool: EDWARD-7 Assessment 12450 ([id number]) PHQ-9 - 20691 - PHQ-9 Billing: Yes ([id number]) Assessment & Plan Assessment & Plan (1) Paroxysmal A-fib: Code(s): I48.0 - Paroxysmal atrial fibrillation Category: Medical Plan: Patient's symptoms are stable. She denies AFib events. She is on Eliquis without any overt signs of bleeding. (2) HLD (hyperlipidemia): Code(s): E78.5 - Hyperlipidemia, unspecified Category: Medical Qualifiers: Hyperlipidemia type: mixed hyperlipidemia Qualified Code(s): E78.2 - Mixed hyperlipidemia Plan: Patient has a history of borderline high cholesterol. She continues on atorvastatin 20 mg. Goal LDL is to be below 130. (3) HTN (hypertension): Code(s): I10 - Essential (primary) hypertension Category: Medical Qualifiers: Hypertension type: essential hypertension Qualified Code(s): I10 - Essential (primary) hypertension Plan: Patient's blood pressure acceptable today in office. She has discontinued use of amlodipine 5 mg and blood pressures are stable. She gets stable readings at home as well. Goal blood pressures to be below 140/90 (4) MDD (major depressive disorder), recurrent episode, moderate: Code(s): F33.1 - Major depressive disorder, recurrent, moderate Category: Medical Plan: Patient's PHQ-9 score 1, she reports her mental health is stable on current dose of sertraline and trazodone. (5) Allergies: Code(s): T78.40XA - Allergy, unspecified, initial encounter Category: Medical Qualifiers: Encounter type: subsequent encounter Qualified Code(s): T78.40XD - Allergy, unspecified, subsequent encounter Plan: As per HPI patient feels that she has a environmental allergies. She is interested in trying a prescription allergy medication to help her with her sinus congestion. (6) Class 2 obesity: Code(s): E66.812 - Obesity, class 2 Category: Medical Plan: Patient does understand her BMI is over 30 will continue working on being more physically active and adapting to better eating habits to reduce her weight Medications: New montelukast 10 mg PO DAILY 90 tabs 1RF 90 days T78.40XD - Allergy, unspecified, subsequent encounter On Hold amlodipine Hold Comment: Doctor's Order 5 mg PO DAILY 90 tabs 1RF 90 days I10 - Essential (primary) hypertension Patient Instructions: Goal: Blood pressure to remain below 140/90 Barriers: Adherence to physical activity and healthy eating habits
[2025-06-22 10:09] VITALS: BP 120/70; PULSE 60; TEMP 36.2; O2SAT 97; BMI 34.3
--- OUTSIDE RECORDS SUMMARY | 2025-06-22 10:40 | XMS_ITS | Clinical Summary ---
Author Organization [facility] Address [address] [place] [address] Phone Care Team Providers Care Academic Adviser Name Role Phone Kaiden Galdamez Primary Care Provider [phone] Surgical History Surgery Date Site/Laterality Comments ANKLE SURGERY PROCEDURE: HISTORICAL ANKLE SURGERY TONSILLECTOMY PROCEDURE: HISTORICAL TONSILLECTOMY TUBAL LIGATION PROCEDURE: HISTORICAL TUBAL LIGATION BREAST CYST ASPIRATION Medical History Medical History Date Comments Essential hypertension DX:Essent ial hypertension Afib (CMS/HCC V24, CMS/HCC V28) DX:Afib (HCC) HTN (hypertension) 11/09/2020 DX:HTN (hyper tension) Atrial fibrillation (CMS/HCC V24, CMS/HCC V28) 11/09/2020 DX:Atrial fibrillation (HCC) Palpitations 11/09/2020 DX:Palpitations Urinary incontinence 11/09/2020 DX:Urinary incontinence; COMMENT: [facility] Allergic rhinitis 11/09/2020 DX:Allergic rh initis Family History Medical History Relation Name Comments No Known Problems Aunt No Known Problems Brother Dementia Father Hypertension Father Other cancer Father Other: Cardiovascular Disease, unspecified Father No Known Problems Maternal Grandfather No Known Problems Maternal Grandmother Heart attack Mother Hypertension Mother Other: Cardiovascular Disease, unspecified Mother No Known Problems Other No Known Problems Paternal Grandfather No Known Problems Paternal Grandmother No Known Problems Sister No Known Problems Uncle Blindness Neg Hx Cataracts Neg Hx Glaucoma Neg Hx Macular degeneration Neg Hx Strabismus Neg Hx Relation Name Status Comments Aunt Brother Father Maternal Grandfather Maternal Grandmother Mother Other Paternal Grandfather Paternal Grandmother Sister Uncle Social History Tobacco Use Types Packs/Day Years Used Date Smoking Tobacco: Never Smokeless Tobacco: Never Alcohol Use Standard Drinks/Week Comments No 0 (1 standard drink = 0.6 oz pur e alcohol) Comments No Sex and Gender Information Value Date Recorded Sex Assigned at Female 12/03/2024 12:28 PM EST Legal Sex Female 7:52 PM EST Gender Identity Female 12/03/2024 12:28 PM EST Sexual Orientation Straight 12/03/2024 12 :28 PM EST Obstetrics History Para Term AB IAB SAB Ectopic Multiple Livin g Live Births 2 Last Filed Vital Signs Vital Sign Reading Time Taken Comments Blood Pressure 130/78 04/18/2023 1:44 PM EDT L A rm Pulse 53 04/18/2023 1:18 PM EDT Temperature - - Respiratory Rate - - Oxygen Saturation - - Inhaled Oxygen Concentration - - Weight 81.6 kg (180 lb) 12/23/2024 2:23 PM EST Height 162.6 cm (5' 4 ) 12/23/2024 2:23 PM EST Body Mass Index 30.9 12/23/2024 2:23 PM EST Plan of Treatment Health Maintenance Due Date Last Done Comments Pneumococcal Vaccine: 50+ Years (1 of 1 - PCV) 1999 Zoster Vaccines (1 of 2) 1999 Cholesterol Screening (Lipid Panel) 10/21/2022 Colorectal Cancer Screening: Colonoscopy 10/21/2022 Falls Risk Assessment 10/21/2022 Hepatitis C Screening 10/21/2022 Medicare Annual Wellness Visit 10/21/2022 Social Influencers of Health Screening 10/21/2022 Hypertension/CHF/CAD Annual BMP Blood Test 10/29/2022 COVID-19 Vaccine ( - 2023- season) 2024 07/27/2021, 06/27/2021 RSV Immunization Adult Patients (1 - 1-dose 75+ series) 2024 Depression Screening 11/19/2024 Influenza Vaccine (#1) 2025 0, 12/17/2018, 11/28/2016 DTaP,Tdap,and Td Vaccines (2 - Td or Tdap) 03/14/2029 03/14/2019 Osteoporosis Screening (Bone Density Screening) 10/22/2030 10/22/2020 Breast Cancer Screening Discontinued 12/23/19 25, 03/28/2023, 02/15/2022, Additional history exists HIB Vaccines Aged Out No longer eligi ble based on patient's age to complete this topic HPV Vaccines Aged Out No longer eligi ble based on patient's age to complete this topic Hepatitis A Vaccines Aged Out No long er eligible based on patient's age to complete this topic Hepatitis B Vaccines Aged Out No long er eligible based on patient's age to complete this topic IPV Vaccines Aged Out No longer eligi ble based on patient's age to complete this topic MMR Vaccines Aged Out No longer eligi ble based on patient's age to complete this topic Meningococcal ACWY Vaccine Aged Out N o longer eligible based on patient's age to complete this topic Meningococcal B Vaccine Aged Out No l onger eligible based on patient's age to complete this topic RSV Immunization Patients Under 20 months Aged Out No longer eligible based on patient's age to complete this topic Varicella Vaccines Aged Out No longer eligible based on patient's age to complete this topic Procedures Procedure Name Priority Date/Time Associated Diagnosis Comments MG MAMMO DIGITAL SCREENING W ABIODUN BILAT Routine 12/23/2024 2:39 PM EST Encounter for screening mammogram for breast cancer CRISTAL DEXA AXIAL SKELETON Routine 10/22/2020 4:22 PM EST Encounter for screening for osteoporosis from Last 3 Months or Most Recently Relevant to Health Maintenance Results * MG Mammo Digital Screening w Abiodun bilat (12/23/2024 2:39 PM EST) Anatomical Region Laterality Modality Breast Bilateral Mammography 12/23/2024 2:51 PM EST Impressions 12/23/2024 2:52 PM EST No evidence of breast malignancy. BI-RADS CATEGORY: 1 - NEGATIVE RECOMMENDATION: Screening bilateral mammogram is recommended in 1 year. Mammo Location: [facility], [address] [place] [address], [id number], . -------- FINAL REPORT -------- Dictated By: Macie Harris Dictated Date: 12/23/2024 14:51 ET Assigned Physician: Macie Harris Reviewed and Electronically Signed By: Macie Harris Signed Date: 12/23/2024 14:52 ET Workstation ID: [id number] Transcribed By: Self Edit Transcribed Date: 12/23/2024 14:51 ET Narrative 12/23/2024 2:52 PM EST CLINICAL: 74 years old, Female, routine annual exam. COMPARISON: 03/28/2023, 02/15/2022, 10/22/2020 and 09/26/2019 TECHNIQUE: Bilateral MLO and CC views were obtained digitally with 3-D mammogram (digital breast tomosynthesis). Computer-aided detection was utilized in evaluation of this exam (CAD). FINDINGS: There is no evidence of suspicious mass or architectural distortion. No worrisome calcifications are evident. There has been no significant change from prior exam(s). BREAST DENSITY: B - There are scattered areas of fibroglandular density. Procedure Note Macie Harris MD - 12/23/2024 CLINICAL: 74 years old, Female, routine annual exam. COMPARISON: 03/28/2023, 02/15/2022, 10/22/2020 and 09/26/2019 TECHNIQUE: Bilateral MLO and CC views were obtained digitally with 3-Dmammogram (digital breast tomosynthesis). Computer-aided detection wasutilized in evaluation of this exam (CAD). FINDINGS: There is no evidence of suspicious mass or architectural distortion. Noworrisome calcifications are evident. There has been no significantchange from prior exam(s). BREAST DENSITY: B - There are scattered areas of fibroglandular density. IMPRESSION: No evidence of breast malignancy. BI-RADS CATEGORY: 1 - NEGATIVE RECOMMENDATION: Screening bilateral mammogram is recommended in 1 year. Mammo Location: [facility], [address] [place] [address], [address], . -------- FINAL REPORT -------- Dictated By: Macie Harris Dictated Date: 12/23/2024 14:51 ET Assigned Physician: Macie Harris Reviewed and Electronically Signed By: Macie Harris Signed Date: 12/23/2024 14:52 ET Workstation ID: [id number] Transcribed By: Self Edit Transcribed Date: 12/23/2024 14:51 ET us Self Referral Sppl IMG BI PROCEDURES Final Resul t * CRISTAL DEXA AXIAL SKELETON (10/22/2020 4:22 PM EST) Anatomical Region Laterality Modality Mammography 10/22/2020 1:43 PM EST Narrative 10/22/2020 4:22 PM EST [facility] Diagnostic Imaging Department [address] [place] [address] Patient: KINDRA BRADLEY Kristian Silverio/Age/Sex: 1950 - 70 - F Unit#: [id number] Location/Status: [facility] CLI Mnemonic/Ordering Site: [id number]/SPMAM Ordering Physician: ANA M FELIX MD Cristal Dexa Axial Skeleton - 10/22/20 - 7974 HISTORY: Post menopausal woman with hormone depletion for screening bone densitometry. The patient is on calcium supplement with Vitamin D. TECHNIQUE: Bone densitometry is performed utilizing dual energy x-ray absorptiometry (DEXA) in the [employer] unit. The lumbar spine is evaluated in the AP projection and L1 through L4 are utilized. The proximal femora are evaluated in the AP projection bilaterally. FINDINGS: AP spine: Bone mineral density: 1.216 gm/cm2 T-score: 0.3 Z-score: 1.4 Dual Femur (mean): Bone mineral density: 0.815 gm/cm2 T-score: -1.5 Z-score: -0.4 IMPRESSION: Normal bone mineralization in the lumbar spine. Osteopenia in the bilateral hips. Comparison with prior examination 06/25/2014, there is decreased bone mineralization within the lumbar spine and decreased bone mineralization within the left proximal femur and decreased bone mineralization in the right proximal femur. [id number] A report detailing these results has been enclosed. Dictating Physician: JIMBO KELLER MD Electronically Signed by: JIMBO KELLER MD Dic Date/Time: 10/22/201619 Sign date/Time: 10/22/201621 Procedure Note Jimbo Keller MD - 11/07/2022 [facility] Diagnostic Imaging Department [address] [place] [address] Patient: KINDRA BRADLEY D.O.B./Age/Sex: 1950 - 70 - F Unit#: [id number] [facility]ing Site[facility] Ordering Physician: ANA M FELIX MD [facility] Dexa Axial Skeleton - 10/22/20 - 0475 HISTORY: Post menopausal woman with hormone depletion for screening bone densitometry. The patient is on calcium supplement with Vitamin D. TECHNIQUE: Bone densitometry is performed utilizing dual energy x-ray absorptiometry (DEXA) in the [employer] unit. The lumbar spine isevaluated in the AP projection and L1 through L4 are utilized. The proximal femoraare evaluated in the AP projection bilaterally. FINDINGS: AP spine: Bone mineral density: 1.216 gm/cm2 T-score: 0.3 Z-score: 1.4 Dual Femur (mean): Bone mineral density: 0.815 gm/cm2 T-score: -1.5 Z-score: -0.4 IMPRESSION: Normal bone mineralization in the lumbar spine. Osteopenia in the bilateral hips. Comparison with prior examination 06/25/2014, there is decreased bone mineralization within the lumbar spine and decreased bone mineralizationwithin the left proximal femur and decreased bone mineralization in the rightproximal femur. [id number] A report detailing these results has been enclosed. Dictating Physician: JIMBO KELLER MD Electronically Signed by: JIMBO KELLER MD Dic Date/Time: 10/22/20 1620 Sign date/Time: 10/22/20 1622 Ana M Felix MD IMG BI PROCEDURES Final Re sult from Last 3 Months or Most Recently Relevant to Health Maintenance Insurance MEDICARE [facility] Care Teams Academic Adviser Relationship Specialty Start Date End Date Kaiden Galdamez PA PCP - General Internal Medicine 10/13/20
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
--- OUTSIDE RECORDS SUMMARY | 2025-06-22 10:40 | XMS_ITS ---
Author Name [facility] Organization Unknown Care Team Organization Name Specialty Phone Email Start Date End Da te [facility] Term[facility], PROVIDER Primary Care 04/27/202306/19
== END 2025-06-22 10:33 | disposition home or self-care (01) ==
LOC: HO.HMCH 10:02
PROVIDERS: PCP Physician Assistant; Visit Provider Physician Assistant
DX: I48.0 Paroxysmal atrial fibrillation (principal); E78.2 Mixed hyperlipidemia; I10 Essential (primary) hypertension; F33.1 Major depressive disorder, recurrent, moderate; T78.40XD Allergy, unspecified, subsequent encounter; E66.812 Obesity, class 2

== ENCOUNTER → 2025-06-22 10:01 | Outpatient (BNVA) | payer MEDICARE, SELFPAY | PROVIDERS: PCP Physician Assistant; Visit Provider Physician Assistant | DX: I48.0 Paroxysmal atrial fibrillation (principal); E78.2 Mixed hyperlipidemia; I10 Essential (primary) hypertension; F33.1 Major depressive disorder, recurrent, moderate; E66.812 Obesity, class 2; T78.40XD Allergy, unspecified, subsequent encounter | CPT/HCPCS: 96127; 99212 ==